=== PATIENT | male | born 1940 | race Caucasian/White ===

== ENCOUNTER 2023-06-16 12:54 | Outpatient (CLI) | payer MEDICARE, MEDICAID | END 2023-06-16 12:55 | disposition home or self-care (01) | LOC: CSHCT 12:54 | PROVIDERS: ATTEND Radiology Radiation Oncology | DX: Z12.2 Encounter for screening for malignant neoplasm of respiratory organs (principal); Z87.891 Personal history of nicotine dependence; J92.9 Pleural plaque without asbestos; J98.11 Atelectasis | CPT/HCPCS: 71271 ==